=== PATIENT | male | born 1990 | race Caucasian/White ===

== ENCOUNTER 2023-07-21 13:15 | Emergency (ER) | payer MEDICAID ==
[~2023-07-21] VITALS: Ht 188 cm; Wt 99.0 kg
[2023-07-21 13:19] VITALS: BP 125/72; PULSE 94; RESP 16; TEMP 98.3
[2023-07-21] MEDS ORDERED: DIAZ-328 PO (13:21)
[2023-07-21] MEDS ORDERED: HYDR-3831 PO (13:21)
[2023-07-21] MEDS: LORazepam 1 MG TABLET PO ONE (15:01)
== END 2023-07-21 15:27 | disposition home or self-care (01) ==
LOC: EMS 13:16
DX: F41.9 Anxiety disorder, unspecified (principal)
CPT/HCPCS: 99283